=== PATIENT | female | born 1980 | race Caucasian/White ===

== ENCOUNTER 2024-10-11 19:27 | Emergency (ER) | payer OTHER, SELFPAY ==
[2024-10-11 19:28] VITALS: BMI 40.3
[2024-10-11 19:43] VITALS: BP 219/113
[2024-10-11 20:30] LABS: Hematocrit 41.5 % (37.0-47.0); Mean Corp Hgb Conc. 33.7 g/dL (33.0-37.0); Mean Corpuscular Hgb 30.4 pg (27.0-31.0); Mean Corpuscular Volume 90.2 fL (81.0-99.0); Mean Platelet Volume 9.8 fL (7.4-10.4); Platelet Count 327 10^3/uL (130-400); Red Cell Dist. Width 12.5 % (11.5-14.5); White Blood Cell Count 11.3 10^3/uL (4.8-10.8)
[2024-10-11 20:38] LABS: HCG, Serum Qualitative Screen Negative
[2024-10-11 20:42] LABS: ALT (SGPT) 28 U/L (0-35); AST (SGOT) 31 U/L (14-36); Albumin 4.5 g/dl (3.5-5.0); Alkaline Phosphatase 49 U/L (38-126); Blood Urea Nitrogen 29 mg/dl (7-17); Calcium 9.3 mg/dl (8.4-10.2); Carbon Dioxide 24 mmol/L (22-30); Chloride 98 mmol/L (98-107); Glucose 97 mg/dl (70-99); Potassium 4.1 mmol/L (3.5-5.1); Sodium 134 mmol/L (135-145); Total Bilirubin 0.3 mg/dl (0.2-1.3); Total Protein 7.5 g/dl (6.3-8.2); eGFR > 60.00
[2024-10-11 20:43] LABS: Troponin I < 0.012 ng/ml
[2024-10-11 21:11] LABS: % Basophils 0.7 % (0-2); % Immature Granulocytes 0.3 % (0-0.5); % Lymphocytes 35.7 % (20.5-51.1); % Monocytes 4.1 % (1.7-9.3); % Neutrophils 57.2 % (42.2-75.2); Absolute Basophils 0.1 10^3/uL (0-0.2); Absolute Eosinophils 0.2 10^3/uL (0-0.7); Absolute Monocytes 0.5 10^3/uL (0.1-0.6); Absolute Neutrophils 6.5 10^3/uL (1.4-6.5); Nucleated Red Blood Cells % 0 %
[2024-10-11 22:21] VITALS: BP 173/92
[2024-10-11 23:00] VITALS: BP 156/95
[2024-10-12] VITALS: BP 158/98
--- NOTE | 2024-10-12 00:17 | ED.GENMED ---
History of Present Illness
General
Chief Complaint: Chest Pain
Source: patient
Exam Limitations: none
Time Seen by Provider: 10/11/24 23:45
History of Present Illness
History of Present Illness:
This is a 44 year old female that comes in with c/o chest pain. State that she has had strep 2 times sine Thanksgiving. States that she has had a cough and post nasal drip. States that tonight she had tightness over the sternum. State that this
started 1.5 hour before she came to the Er. States that it is more with the cough. States that she has a sinus headache. Denies any fever, chills, SOB, abd pain, nausea, vomiting, diarrhea, dizziness, urinary burning.
Past History
Past History
ED Past Medical History: Other (strep throat); Negative Asthma, HTN or Hypercholesterolemia
ED Past Surgical History: None
Social History
Tobacco: Former smoker
Alcohol: Daily (Vodka 2 glasses)
Personal:
Living: with family
Review of Systems
Review of Systems
All Other Systems: ROS reviewed and negative except as documented in HPI and ROS
Constitutional: Denies fever or chills
EENT: Reports no symptoms
Respiratory: Reports cough; Denies trouble breathing
Cardiac: Reports chest pain
ABD/GI: Reports no symptoms; Denies abdominal pain, nausea, vomiting or diarrhea
: Reports no symptoms; Denies dysuria, frequency or urgency
Musculoskeletal: Reports no symptoms
Skin: Reports no symptoms
Neurological: Reports headache; Denies dizzy
Psychiatric: Reports no symptoms
Phy Exam
General Physical Exam
General Presentation: well appearing and no apparent distress
General age: appears stated age
General Skin: warm and dry
General Habitus: normal
General Mental: alert
General Hydration: appears well hydrated
ENT Exam
ENT Exam: TM's normal, pharynx normal and neck supple
Eye Exam
Eye Exam: EOMI
Cardiovascular Exam
Cardiovascular Exam: regular rate/rhythm, no edema, no murmur and normal peripheral pulses
Pulmonary Exam
Pulmonary Exam: lungs clear, no respiratory distress, no rales, chest non tender, no crackles, no rhonchi, no wheezing and other (Dry cough noted)
Gastrointestinal Exam
Gastrointestinal Exam: normal bowel sounds, non tender, soft, no organomegaly, no pulsatile mass and non distended
Musculoskeletal Exam
Musculoskeletal Exam: full ROM and no edema
Skin Exam
Skin Exam: normal color, warm/dry, no rash and no petechia
Psychiatric Exam
Psychiatric Exam: normal mood/affect
Scores
Heart Score for Chest Pain Patients
STEMI patient?: Not applicable
Course
Orders/Labs/Results
Orders:
Orders
10/11/24 19:48
Electrocardiogram (*1) Urgent
Reason for Study: Chest Pain
Complete Blood Count/With Diff Urgent
Comprehensive Metabolic Panel Urgent
HCG, Serum Qualitative Screen Urgent
Troponin I Urgent
10/11/24 19:49
EKG- Treatment ONCE
Test Result ONCE
10/12/24 00:16
CR Chest - 2 Views Urgent
Comment:
Reason For Exam: cOUGH. CHEST PAIN
10/12/24 00:19
D-Dimer Urgent
10/12/24 00:20
Troponin I Urgent
10/12/24 01:00
COVID-19 Antigen Urgent
Source: Nasal Swab
10/12/24 01:02
Doxycycline [Vibramycin] 100 mg PO NOW STA
Abnormal Lab Results
10/11/24
19:48
WBC 11.3 H 10^3/uL
(4.8-10.8)
Absolute Lymphs (auto) 4.0 H 10^3/uL
(1.2-3.4)
Sodium 134 L mmol/L
(135-145)
BUN 29 H mg/dl
(7-17)
10/11/24 19:48
10/11/24 19:48
Leukocytosis, Sodium very slightly low. Dehydration. Troponin <0.012, HCG negative. D-dimer 0.29
Second Troponin<0.012
Vital Signs
Initial and Last Documented VS:
Initial Vital Signs
Temp Pulse Resp BP Pulse Ox
98.9 F 100 18 219/113 100
10/11/24 19:43 10/11/24 19:43 10/11/24 19:43 10/11/24 19:43 10/11/24 19:43
Last Documented Vital Signs
Temp Pulse Resp BP Pulse Ox
98.9 F 80 17 148/91 97
10/11/24 19:43 10/12/24 01:00 10/12/24 00:15 10/12/24 01:00 10/12/24 01:00
MDM/Problems Addressed
Differential Diagnosis Includes:
Cough, Coronary syndrome
MDM/Problems Addressed:
This is a 44 year old female that comes in with c/o mid sternal chest pain. states that it was more with her cough. States that she has had strep 2 times since .
Will check labs, chest x-ray. ECG
back into see patient. Explained that there is most likely a little Pneumonia at the left base. . Patient was given Doxycycline. patient has an appointment with the PCP on October 21. Encouraged patient to come back with increased SOB or any other
concerns.
Chronic conditions affecting care:
NA
Acute Exacerbation and/or Progression of Chronic Illness:
NA
*Radiology
Radiology exam reviewed: preliminary read by ED provider (Chest- Possible left lower lobe pneumonia)
*Pulse Oximetry
Patient hypoxic: no
*EKG
Interpreted by ED Provider?: Yes
Heart Rate: 99
Rate: normal
Rhythm: sinus
[place]: normal axis
Interval: normal interval
QRS Pattern: normal QRS
Ischemia: non-specific ST changes (I, II, V3, V4, V5, V6)
*Diplomatic Courier Interpretation
Rate: normal
Heart Rate: 86
Rhythm: sinus
*Critical Care Note
Total Time (30-74mins, 75-104mins- exclusive of procedures): Not Applicable
ED Attending Note
-
Portions of this chart may have been created with voice recognition software.� Occasional wrong word or��sound alike� substitutions may have occurred due to the inherent limitations of voice recognition software.
Discharge Plan
Departure
Patient Disposition: Home (Routine Discharge)
Date of Disposition: 10/12/24
Time of Disposition: 02:00
Patient with high blood pressure during this ER visit?: Yes
Condition: Good
Covid-19: Negative COVID-19
Discharge Problem:
Left lower lobe pneumonia
Instructions: Pneumonia in adults - Discharge instructions, BLOOD PRESSURE
Prescriptions:
New
doxycycline hyclate 100 mg capsule
100 mg PO BID Qty: 19 0RF
Referrals:
Adry Drew MD [Family Provider] - 10/21/24
Activity Restrictions/Additional Instructions:
As discussed, your blood work shows that your white blood cell count is slightly elevated and that you are dehydrated. Please increase your water intake to 8-8oz glasses daily. You are negative for COVID. Your Chest X-ray shows that there is a small
area of Pneumonia on the left side. You have been given your first dose of antibiotic here. A prescription has been sent to your pharmacy. Please take as directed. IF YOU HAVE INCREASED SHORTNESS OF BREATH OR YOU HAVE ANY OTHER CONCERNS PLEASE
RETURN TO THE EMERGENCY ROOM.
Interventions
Interventions:
*Risk Screen - Suicide Last Done: 10/11/24 22:22
*General Assessment Last Done: 10/11/24 22:22
*Neglect/Abuse Screening Last Done: 10/11/24 22:22
*ED COVID-19 Vaccine History Last Done: 10/11/24 22:22
ED- Cardiac Assessment Last Done: 10/11/24 22:22
Discharge Date and Time
Print Language: ARMENIAN
[2024-10-12 00:52] LABS: D-Dimer 0.29 ug/mlFEU (0.00-0.50)
[2024-10-12 01:00] VITALS: BP 148/91
[2024-10-12 01:02] LABS: Troponin I < 0.012 ng/ml
[2024-10-12] MEDS: VIBRAMYCIN 100 MG PO (01:12)
[2024-10-12 01:29] LABS: COVID-19 Antigen Negative (Negative)
[2024-10-12 02:00] VITALS: BP 137/89
== END 2024-10-12 02:17 | disposition home or self-care (01) ==
LOC: EMR 19:27
PROVIDERS: Clinical Nurse Specialist Family Health; Emergency Medicine; EMERGENCY PHYSICIAN Student in an Organized Health Care Education/Training Program; FAMILY PHYSICIAN Family Medicine
DX: J18.9 Pneumonia, unspecified organism (principal); R03.0 Elevated blood-pressure reading, without diagnosis of hypertension; Z87.891 Personal history of nicotine dependence
CPT/HCPCS: 99285; 71046; 80053; 84484; 84703; 85025; 85379; 87811; 93005

== ENCOUNTER 2024-11-28 06:25 | Day surgery (SDC) | payer OTHER, SELFPAY | END 2024-11-28 11:20 | disposition home or self-care (01) | LOC: GI 06:25 | PROVIDERS: ATTENDING PHYSICIAN Student in an Organized Health Care Education/Training Program | DX: Z12.11 Encounter for screening for malignant neoplasm of colon (principal); K51.40 Inflammatory polyps of colon without complications; K64.4 Residual hemorrhoidal skin tags; Z83.719 Family history of colon polyps, unspecified | CPT/HCPCS: 45385; 88305; 88341; 88342 ==